=== PATIENT | female | born 1935 | race Hispanic/Latino ===

== ENCOUNTER 2016-12-22 13:33 | Outpatient (CLI) | payer MEDICARE ==
--- NOTE | 2016-12-23 08:31 | Magnetic Resonance Report ---
MRI scan of cervical spine: History: Arm tingling. Findings: Technique lumbosacral multisequence images were obtained without contrast injection. Findings: The cervicomedullary junction and cerebellar tonsils appears normal. Normal prevertebral soft tissue. Normal height and signal intensity of vertebral bodies. Decrease in disc height and signal intensity of C4-C5, C5-C6 and C6-7, secondary to cervical spondylosis. C1-C2. Normal. C2-C3. Normal. C3-C4. Normal. C4-C5. Moderate bilateral neuroforaminal narrowing with mild central canal spinal stenosis secondary to disc osteophyte complex uncovertebral joint hypertrophy and facet joint hypertrophy. C5-C6. Moderate bilateral neural foramina narrowing secondary to disc osteophyte complex and uncovertebral joint hypertrophy and facet joint hypertrophy. Mild central canal spinal stenosis. C6-C7. No definite neuroforaminal narrowing or central canal spinal stenosis. Disc osteophyte complex and uncovertebral joint hypertrophy is noted with facet joint hypertrophy. C7-T1. Normal. No edema or hemorrhage in spinal cord. Impression: Multilevel bilateral neural foramina narrowing with mild central canal spinal stenosis. No evidence of cord edema or hemorrhage. No focal protrusion, extrusion or sequestration of disc.
== END 2016-12-22 13:34 | disposition home or self-care (01) ==
LOC: SPVIMAG 13:33
DX: M48.02 Spinal stenosis, cervical region (principal); G61.89 Other inflammatory polyneuropathies; M25.78 Osteophyte, vertebrae; M47.896 Other spondylosis, lumbar region
CPT/HCPCS: 72141

== ENCOUNTER 2017-03-29 09:38 | Outpatient (CLI) | payer MEDICARE ==
--- NOTE | 2017-03-29 14:42 | Mammography Report ---
BILATERAL DIGITAL SCREENING MAMMOGRAM with CAD : 03/29/17 09:38:00 CLINICAL: Routine screening. COMPARISON:03/22/16 FINDINGS: The breasts are heterogeneously dense, which may obscure small masses.Bilateral scattered calcifications with benign morphology are unchanged compared to prior exams. No mass, architectural distortion or suspicious calcifications. IMPRESSION: No mammographic evidence of malignancy. BI-RADS CATEGORY: 2 -- Benign RECOMMENDATION: Routine mammographic screening in one year. COMMENT: Patient follow-up letters are generated by our [employer] application.
== END 2017-03-29 09:39 | disposition home or self-care (01) ==
LOC: SPVWC 09:38
PROVIDERS: ATTEND Obstetrics & Gynecology
DX: Z12.31 Encounter for screening mammogram for malignant neoplasm of breast (principal)
CPT/HCPCS: 77067; G0202

== ENCOUNTER 2017-04-17 10:45 | Emergency (ER) | payer MEDICARE ==
[2017-04-17 11:42] VITALS: BP 160/74
[2017-04-17] MEDS ORDERED: TRIPLE ANTIBIOTIC TP ONE (16:28)
[2017-04-17] MEDS ORDERED: TYLENOL PO ONE (16:28)
[2017-04-17] MEDS ORDERED: XYLOCAINE 2%/ EPI 1:200,000 INFILTRATI ONE ×2 (16:28→16:32)
--- NOTE | 2017-04-17 16:31 | Emergency Department Report ---
ED Laceration HPI - HPI Chief Complaint: Laceration/Recheck/Suture Stated Complaint: LEFT HAND PAIN Time Seen by Provider: 04/17/17 15:45 Occurred When: Today Location: Upper Extremity Severity: mild Tetanus Status: Up to Date Laceration Symptoms: Yes Pain, No Foreign Body Sensation, No Numbness, No Weakness Other History: Pt is a 81 y.o female who presents to ED complaining of left hand pain and laceration. Patient states around 10 this morning she was outside holding a basket when the hook caught her hand. Patient states bleeding for some time. Patient states his vaccination is up-to-date on her last TD booster was 2011. ED Review of Systems ROS: Stated complaint: LEFT HAND PAIN Other details as noted in HPI Constitutional: denies: chills, fever Eyes: denies: eye pain, eye discharge, vision change ENT: denies: ear pain, throat pain Respiratory: denies: cough, shortness of breath, wheezing Cardiovascular: denies: chest pain, palpitations Endocrine: no symptoms reported Gastrointestinal: denies: abdominal pain, nausea, diarrhea Genitourinary: denies: urgency, dysuria, discharge Musculoskeletal: denies: back pain, joint swelling, arthralgia Skin: denies: rash, lesions Neurological: denies: headache, weakness, paresthesias Psychiatric: denies: anxiety, depression Hematological/Lymphatic: denies: easy bleeding, easy bruising ED Past Medical Hx - Past Medical History Hx of Cancer: Yes (Lymphoma) Additional medical history: Spinal Stenosis - Surgical History Hx Cholecystectomy: Yes Additional Surgical History: Rotator cuff x 2 - Social History Smoking Status: Never Smoker Substance Use Type: None - Medications Home Medications: Home Medications Medication Instructions Recorded Confirmed Last Taken Type Acetaminophen [Acetaminophen 8 650 mg PO TID #20 tablet.er 04/17/17 Unknown Rx Hour] Cephalexin [Keflex] 500 mg PO Q12HR #10 cap 04/17/17 Unknown Rx Laceration Physical Exam - Exam General: Vital signs noted. No distress. Alert and acting appropriately. Wound Length (cm): 3 Laceration Location: Upper Extremity ED Course Vital Signs 04/17/17 11:37 Temperature 98.4 F Pulse Rate 96 H Respiratory 18 Rate Blood Pressure 160/74 O2 Sat by Pulse 96 Oximetry - Laceration /Wound Repair Left Anterior Hand Wound Location: upper extremity Wound Length (cm): 3 Wound's Depth, Shape: superficial Wound Explored: clean Irrigated w/ Saline (ccs): 100 Betadine Prep?: Yes Anesthesia: Lidocaine w/ Epi Volume Anesthetic (ccs): 6 Wound Repaired With: sutures Suture Size/Type: 4:0 Number of Sutures: 7 Layer Closure?: No Sterile Dressing Applied?: Yes ED Medical Decision Making - Medical Decision Making 81-year-old female presented a laceration of the left hand The 3cm laceration wound was prepped and draped in sterile fashion. Anesthesia was achieved with 6mL of 1% lidocaine. The wound was irrigated with 100cc NS and explored. There were no foreign bodies The wound was reapproximated in 1 layer with 7 sutures suing with 4-0 monofilament sutures in the dermis with interrupted sutures percutaneously. There was excellent reapproximation of the wound edges. The patient tolerated the procedure without complication Discussed the patient to return to ED and 7-10days for suture removal Discussed this medication at home as prescribed Vital signs are normal patient is in no acute distress. Critical care attestation.: If time is entered above; I have spent that time in minutes in the direct care of this critically ill patient, excluding procedure time. ED Disposition Clinical Impression: Laceration of hand without complication, excluding fingers Qualifiers: Encounter type: initial encounter Laterality: left Qualified Code(s): S61.412A - Laceration without foreign body of left hand, initial encounter Disposition: DC-01 TO HOME OR SELFCARE Is pt being admited?: No Does the pt Need Aspirin: No Condition: Stable Instructions: Suture Care (ED), Laceration (ED), Suture Removal (ED) Additional Instructions: Return to the ED or primary care physician in 7-10 days for suture removal Prescriptions: Acetaminophen [Acetaminophen 8 Hour] 650 mg PO TID #20 tablet.er Cephalexin [Keflex] 500 mg PO Q12HR #10 cap Referrals: PRIMARY CARE, [Primary Care Provider] - 3-5 Days Forms: Accompanied Note, Work/School Release Form(ED)
[2017-04-17] MEDS ORDERED: TYLENOL ONE (16:37)
== END 2017-04-17 17:47 | disposition home or self-care (01) ==
LOC: ED 10:45
DX: S61.412A Laceration without foreign body of left hand, initial encounter (principal); Z88.2 Allergy status to sulfonamides; C85.90 Non-Hodgkin lymphoma, unspecified, unspecified site; W26.8XXA Contact with other sharp object(s), not elsewhere classified, initial encounter; W45.8XXA Other foreign body or object entering through skin, initial encounter; Y93.89 Activity, other specified; Y92.89 Other specified places as the place of occurrence of the external cause; Y99.8 Other external cause status
CPT/HCPCS: A6250

== ENCOUNTER 2019-05-21 11:06 | Outpatient (CLI) | payer MEDICARE ==
--- NOTE | 2019-05-22 10:18 | Mammography Report ---
DIGITAL SCREENING MAMMOGRAM WITH CAD, 05/21/2019 INDICATION: Routine screening mammography. TECHNIQUE: Digital bilateral 2D mammography was obtained in the craniocaudal and mediolateral obliq ue projections. This examination was interpreted with the benefit of Computer-Aided Detection analysi s. COMPARISON: 04/03/2018 FINDINGS: Breast Density: The breasts are heterogeneously dense, which may obscure small masses. There is no evidence of dominant mass, suspicious calcifications or architectural distortion in eithe r breast. Scattered bilateral calcifications with benign morphology. Bilateral benign arterial calcif ications. IMPRESSION: No mammographic evidence of malignancy. Follow up recommendation: Routine yearly BI-RADS Category 2: Benign. A "normal" or negative report should not discourage follow up or biopsy of a clinically significant f inding. A written summary of these findings will be mailed to the patient. The patient will be entered into a mammography reporting system which will generate a reminder letter for the patient's next appointmen t at the appropriate interval. The [employer] recommends yearly mammograms starting at age 40 and continuing as l fl[place] as a woman is in good health. Breast MRI is recommended for women with an approximate 20-25% or greater lifetime risk of breast cancer, including women with a strong family history of breast or ova javier cancer or who have been treated for Hodgkin's disease. Signer Name: Chase Ruelas MD Signed: 05/22/2019 10:14 AM Workstation Name: [id number]
== END 2019-05-21 11:07 | disposition home or self-care (01) ==
LOC: SPVWC 11:06
PROVIDERS: ATTEND Obstetrics & Gynecology
DX: Z12.31 Encounter for screening mammogram for malignant neoplasm of breast (principal); Z90.49 Acquired absence of other specified parts of digestive tract
CPT/HCPCS: 77067